=== PATIENT | male | born 1950 | race Caucasian/White ===

== ENCOUNTER 2018-08-24 02:07 | Outpatient (CLI) | payer MEDICARE, SELFPAY ==
[2018-08-24 07:52] LABS: Abs Immature Grans 0.01 k/cumm (0.0-0.09); Absolute Basophil Count 0.01 k/cumm (0.0-0.2); Absolute Eosinophil Count 0.13 k/cumm (0.0-0.7); Absolute Lymphocyte Count 1.84 k/cumm (1.2-3.4); Absolute Monocyte Count 0.37 k/cumm (0.11-0.7); Absolute Neutrophil Count 2.92 k/cumm (1.2-6.7); Basophils % 0.2; Eosinophils % 2.5; HCT 47.1 % (40.0-50.0); HGB 15.8 g/dL (13.5-17.5); Immature Grans % 0.2; Lymphocytes % 34.8; Mean Corp. HGB Concentration 33.5 g/dL (32.0-36.0); Mean Corpuscular Hemoglobin 31.9 pg (27.0-33.0); Mean Platelet Volume 10.9 fL (8.0-11.0); Neutrophils % 55.3; Platelet Count 157 x1000/uL (130-400); RBC 4.96 m/cumm (4.50-6.00); RBC Distribution Width 13.4 % (11.8-14.1); White Blood Cell Count 5.28 k/cumm (4.4-10.8)
[2018-08-24 10:09] LABS: ALT 22 U/L (12-78); AST 23 U/L (15-37); Albumin 3.9 g/dL (3.4-5.0); Alkaline Phosphatase 66 U/L (46-116); Anion Gap 7.2 mmol/L (3-11); BUN 13 mg/dL (7-18); Bilirubin, Total 1.8 mg/dL (0.2-1.0); CO2 30.8 mmol/L (21.0-32.0); CREATININE 1.05 mg/dL (0.70-1.30); Calcium 8.9 mg/dL (8.5-10.1); Chloride 102 mmol/L (98-107); Glucose 87 mg/dL (70-100); Potassium 4.2 mmol/L (3.5-5.1); Sodium 140 mmol/L (136-145); TSH 3.45 uIU/mL (0.358-3.74); Total Protein 7.1 g/dL (6.4-8.2)
== END 2018-08-24 02:27 ==
PROVIDERS: PCP Family Medicine; Visit Provider Family Medicine
DX: R53.83 Other fatigue (principal); R10.32 Left lower quadrant pain
CPT/HCPCS: 36415; 80053; 84443; 85025

== ENCOUNTER 2018-09-02 01:12 | Outpatient (CLI) | payer MEDICARE, SELFPAY ==
[2018-09-02] MEDS: Omnipaque 350 MG/ML 50 ML BTL PO (09:04)
--- NOTE | 2018-09-02 10:52 | DI.CT_ITS ---
SYMPTOM/DIAGNOSIS: LLQ PAIN, LT FLANK PAIN ABDOMEN AND PELVIC CT: CT scan of the abdomen and pelvis was performed with oral contrast only. The patient refused the intravenous contrast. Comparison ultrasound is 05/06/12. Mild scarring or atelectasis is seen in the lung bases. Lack of IV contrast does limit evaluation of the abdominal organs. The unenhanced liver is unremarkable. The gallbladder is negative. No biliary ductal dilatation is seen. The unenhanced pancreas, spleen and adrenal glands are unremarkable. The kidneys show no evidence of nephrolithiasis or hydronephrosis. There is a 1.5 cm., round, hypodense cortical lesion at the superior aspect of the left kidney. This may represent a cyst. Sonographic evaluation may be considered. The urinary bladder is intact. The prostate gland appears enlarged. The abdominal aorta is of normal caliber. There is mild atherosclerosis present. No aneurysmal dilatation is seen. No significant abdominal or pelvic adenopathy, ascites or pneumoperitoneum is present. There is a moderate amount of stool seen throughout the colon. No evidence of bowel obstruction or inflammation. No findings to suggest an acute appendicitis are present. There are degenerative changes seen in the spine. IMPRESSION: 1. No evidence of an acute abdomen. 2. Enlarged prostate gland. 3. 1.5 cm., round, hypodense lesion in the superior aspect of the left kidney. The finding may represent a cyst. Sonographic correlation is recommended.
== END 2018-09-02 01:32 ==
PROVIDERS: PCP Family Medicine; Visit Provider Family Medicine
DX: R10.32 Left lower quadrant pain (principal); N40.0 Benign prostatic hyperplasia without lower urinary tract symptoms; N28.9 Disorder of kidney and ureter, unspecified
CPT/HCPCS: 36415; 74176; 82565; 84443; Q9967

== ENCOUNTER 2020-10-10 18:32 | Outpatient (REF) | payer MEDICARE, SELFPAY ==
[2020-10-14 17:07] LABS: COVID-19 RT-PCR Result NEGATIVE (Negative)
== END 2020-10-10 18:52 ==
LOC: NCHCN 18:32
PROVIDERS: PCP Family Medicine; Visit Provider Nurse Practitioner Family
DX: Z11.59 Encounter for screening for other viral diseases (principal)
CPT/HCPCS: U0003

== ENCOUNTER 2022-02-20 10:11 | Outpatient (CLI) | payer MEDICARE, SELFPAY ==
--- NOTE | 2022-02-20 10:00 | RT.EKG_ITS ---
APPROVED REPORT Exam: Resting ECG Reason for Exam: bradycardia Patient Location: O HR:47 bpm ECG Measurements Heart Rate 47 AXIS MS 167 P 91 QRSd 106 QRS 3 QT 461 T 30 QTc 408 Conclusion Sinus bradycardia...rate< 60 Otherwise normal
== END 2022-02-20 10:12 | disposition home or self-care (01) ==
LOC: DI.CM 10:12
PROVIDERS: PCP Family Medicine; Visit Provider Family Medicine
DX: R00.1 Bradycardia, unspecified (principal)
CPT/HCPCS: 93010

== ENCOUNTER 2022-03-19 03:13 | Outpatient (CLI) | payer MEDICARE, SELFPAY ==
[2022-03-19 13:51] LABS: ALT 25 U/L (16-63); AST 24 U/L (15-37); Albumin 4.1 g/dL (3.4-5.0); Alkaline Phosphatase 71 U/L (46-116); Anion Gap 7.5 mmol/L (3-11); BUN 16 mg/dL (7-18); Bilirubin, Total 1.9 mg/dL (0.2-1.0); CO2 30.5 mmol/L (21.0-32.0); CREATININE 1.1 mg/dL (0.70-1.30); Calcium 9.1 mg/dL (8.5-10.1); Calculated LDL 114 mg/dL (<100); Chloride 104 mmol/L (98-107); Cholesterol 193 mg/dL (<200); Glucose 76 mg/dL (74-106); HDL Cholesterol 63 mg/dL (40-60); Potassium 4.2 mmol/L (3.5-5.1); Sodium 142 mmol/L (136-145); Total Protein 7.1 g/dL (6.4-8.2); Triglyceride 81 mg/dL (<150)
[2022-03-19 23:02] LABS: PSA, Screening 1.6 ng/mL (<=6.5)
[2022-03-20 09:42] LABS: Hepatitis C Ab w Rflx HCV PCR Negative (Negative)
== END 2022-03-19 03:14 | disposition home or self-care (01) ==
LOC: LBO 03:13
PROVIDERS: PCP Family Medicine; Visit Provider Family Medicine
DX: E78.79 Other disorders of bile acid and cholesterol metabolism (principal); Z11.59 Encounter for screening for other viral diseases; I47.1 Supraventricular tachycardia; N40.0 Benign prostatic hyperplasia without lower urinary tract symptoms; Z12.5 Encounter for screening for malignant neoplasm of prostate; K59.04 Chronic idiopathic constipation
CPT/HCPCS: 36415; 80053; 80061; 84153; 86803

== ENCOUNTER 2022-10-15 11:00 | Outpatient (RCR) | payer MEDICARE, SELFPAY ==
--- NOTE | 2022-10-15 11:00 | HOLTER_ITS ---
APPROVED REPORT Conclusion This is a 24-hour Holter monitor ordered for shortness of breath Predominant rhythm was sinus with an average heart rate of 62. Minimum was 48, maximum when in sinus was 132 Ventricular ectopic beats were seen, comprising approximately 3% of total There were frequent atrial premature beats, comprising 13% of total. There were several self-limited episodes of atrial fibrillation, generally lasting less than a few minutes. These did not appear to be symptomatic. Rate when in atrial fibrillation was 1 30-1 50. There was no high-grade AV block, no pauses greater than 3 seconds As noted, there were no apparent patient symptoms
== END 2022-10-24 23:59 | disposition home or self-care (01) ==
LOC: CARDOPNVT 11:00
PROVIDERS: PCP Family Medicine; Visit Provider Emergency Medicine
DX: R06.02 Shortness of breath (principal); I49.1 Atrial premature depolarization; I49.9 Cardiac arrhythmia, unspecified
CPT/HCPCS: 93227; 93225; 93226

== ENCOUNTER → 2022-10-15 13:09 | Outpatient (CLI) | payer MEDICARE, SELFPAY ==
--- NOTE | 2022-10-15 10:55 | DI.RAD_ITS ---
Exam(s) XR CHEST 2V PA LATERAL EXAM: XR CHEST 2V PA LATERAL CLINICAL HISTORY: SOB not active covid, R06.02 TECHNIQUE: 2D digital imaging was performed. COMPARISON: CR CHEST 2 VIEWS PA,LAT from 12/07/2008 FINDINGS: HEART: Normal size. Aorta: Not dilated. Mildly tortuous. PULMONARY VASCULATURE: Normal. LUNGS: Clear. PLEURAL SPACE: No pleural effusion or pneumothorax. BONE:Unremarkable for age. IMPRESSION: No acute abnormality. DATA REPOSITORY: RADIATION DOSE DELIVERED:
== END ==
PROVIDERS: PCP Family Medicine; Visit Provider Emergency Medicine
DX: R06.02 Shortness of breath (principal)
CPT/HCPCS: 71046; 93225

== ENCOUNTER 2022-11-19 02:34 | Outpatient (CLI) | payer MEDICARE, SELFPAY ==
[2022-11-19 11:13] LABS: Abs Immature Grans 0.01 10^3/uL (0.0-0.06); Absolute Basophil Count 0.03 10^3/uL (0.0-0.2); Absolute Eosinophil Count 0.07 10^3/uL (0.0-0.7); Absolute Lymphocyte Count 1.76 10^3/uL (1.2-3.4); Absolute Monocyte Count 0.47 10^3/uL (0.1-0.8); Absolute Neutrophil Count 5.04 10^3/uL (1.2-6.7); Basophils % 0.4; Eosinophils % 0.9; HCT 45.7 % (40.0-50.0); HGB 15.5 g/dL (13.5-17.5); Immature Grans % 0.1; Lymphocytes % 23.8; MCH 32.5 pg (27.0-33.0); MCHC 33.9 % (32.0-36.0); MCV 96 fL (80-95); MPV 11.5 fL (8.0-11.0); Monocytes % 6.4; Neutrophils % 68.4; Platelet Count 159 10^3/uL (130-400); RBC 4.77 10^6/uL (4.36-5.78); RDW-SD 46.4 fL; WBC 7.38 10^3/uL (4.4-10.8)
[2022-11-19 11:33] LABS: ALT 21 U/L (16-63); AST 29 U/L (15-37); Albumin 4.1 g/dL (3.4-5.0); Alkaline Phosphatase 68 U/L (46-116); Anion Gap 6.7 mmol/L (3-11); BUN 22 mg/dL (7-18); Bilirubin, Total 1.9 mg/dL (0.2-1.0); CO2 30.3 mmol/L (21.0-32.0); CREATININE 1.2 mg/dL (0.70-1.30); Calcium 9.5 mg/dL (8.5-10.1); Chloride 105 mmol/L (98-107); Estimated GFR 63.46 (mL/min/1.73m2); Glucose 78 mg/dL (74-106); Sodium 142 mmol/L (136-145); TSH (W/Ref FT4) 2.25 uIU/mL (0.36-3.74); Total Protein 7.5 g/dL (6.4-8.2)
== END 2022-11-19 02:35 | disposition home or self-care (01) ==
LOC: LBO 02:34
PROVIDERS: PCP Family Medicine; Visit Provider Family Medicine
DX: E03.9 Hypothyroidism, unspecified (principal); I48.0 Paroxysmal atrial fibrillation; R06.02 Shortness of breath; R53.83 Other fatigue
CPT/HCPCS: 36415; 80053; 84443; 85025

== ENCOUNTER 2023-10-08 01:12 | Outpatient (CLI) | payer MEDICARE, SELFPAY ==
[2023-10-10 23:03] LABS: Anaplasma phagocytophilum Negative (Negative); B. miyamotoi PCR Negative (Negative); Babesia divergens/MO-1 Negative (Negative); Babesia duncani Negative (Negative); Babesia microti Negative (Negative); Ehrlichia chaffeensis Negative (Negative); Ehrlichia ewingii/canis Negative (Negative); Ehrlichia muris eauclairensis Negative (Negative)
[2023-10-11 11:43] LABS: Lyme Ab w Rflx to Lyme Confirm Negative (Negative)
== END 2023-10-08 01:13 | disposition home or self-care (01) ==
LOC: LOS 01:13
PROVIDERS: PCP Family Medicine; Visit Provider Family Medicine
DX: W57.XXXA Bitten or stung by nonvenomous insect and other nonvenomous arthropods, initial encounter (principal); S30.863A Insect bite (nonvenomous) of scrotum and testes, initial encounter; X58.XXXA Exposure to other specified factors, initial encounter
CPT/HCPCS: 36415; 87798; 86618

== ENCOUNTER 2023-10-15 03:12 | Outpatient (CLI) | payer MEDICARE, SELFPAY ==
[2023-10-15 08:15] LABS: Abs Immature Grans 0.01 10^3/uL (0.0-0.06); Absolute Basophil Count 0.02 10^3/uL (0.0-0.2); Absolute Eosinophil Count 0.12 10^3/uL (0.0-0.7); Absolute Lymphocyte Count 2.07 10^3/uL (1.2-3.4); Absolute Monocyte Count 0.38 10^3/uL (0.1-0.8); Absolute Neutrophil Count 2.25 10^3/uL (1.2-6.7); Basophils % 0.4; Eosinophils % 2.5; HGB 15.5 g/dL (13.5-17.5); Immature Grans % 0.2; Lymphocytes % 42.7; MCH 31.8 pg (27.0-33.0); MCHC 33.7 % (32.0-36.0); MCV 94 fL (80-95); MPV 10.6 fL (8.0-11.0); Monocytes % 7.8; Neutrophils % 46.4; Platelet Count 159 10^3/uL (130-400); RBC 4.88 10^6/uL (4.36-5.78); RDW 12.8 % (11.8-14.1); RDW-SD 44.7 fL; WBC 4.85 10^3/uL (4.4-10.8)
[2023-10-15 08:23] LABS: ALT 29 U/L (16-63); AST 29 U/L (15-37); Albumin 3.7 g/dL (3.4-5.0); Alkaline Phosphatase 62 U/L (46-116); Anion Gap 6.8 mmol/L (3-11); BUN 19 mg/dL (7-18); Bilirubin, Total 1.6 mg/dL (0.2-1.0); CO2 27.2 mmol/L (21.0-32.0); CREATININE 1.1 mg/dL (0.70-1.30); Calcium 9.1 mg/dL (8.5-10.1); Chloride 104 mmol/L (98-107); Estimated GFR 70.01 (mL/min/1.73m2); Glucose 82 mg/dL (74-106); Potassium 3.8 mmol/L (3.5-5.1); Sodium 138 mmol/L (136-145); Total Protein 7.4 g/dL (6.4-8.2)
[2023-10-15 15:51] LABS: Lab Add On Test DONE
[2023-10-15 16:00] LABS: ESR 6 mm/hr (0-20)
[2023-10-15 16:36] LABS: Vitamin B12 504 pg/mL (193-986)
[2023-10-15 16:54] LABS: C-Reactive Protein 0.12 mg/dL (0.0-0.3)
== END 2023-10-15 03:13 | disposition home or self-care (01) ==
LOC: LBO 03:14
PROVIDERS: PCP Family Medicine; Visit Provider Family Medicine
DX: R50.9 Fever, unspecified (principal); Z00.00 Encounter for general adult medical examination without abnormal findings; K59.04 Chronic idiopathic constipation; M76.01 Gluteal tendinitis, right hip; M76.02 Gluteal tendinitis, left hip
CPT/HCPCS: 36415; 80053; 85652; 87040; 82607; 85025; 86140

== ENCOUNTER → 2023-11-12 00:43 | Outpatient (CLI) | payer MEDICARE, SELFPAY ==
--- NOTE | 2023-11-12 06:45 | DI.US_ITS ---
Exam(s) US RENAL EXAM: US RENAL CLINICAL HISTORY: F/U LT renal cyst 2018,N28.1 TECHNIQUE: Ultrasound of both kidneys performed using standard protocol. COMPARISON: US ABDOMEN RENAL from 05/06/2012 FINDINGS: RIGHT KIDNEY: Measures 9.7 cm in length. No cysts evident. Normal cortical thickness and corticomedullary different iation .No solid masses No intrarenal calculi nor hydronephrosis. LEFT KIDNEY: Measures 10.4 cm in length. There is a benign 2 cm cyst in the superior pole the left kidney again n oted, unchanged from 2018. Does not require further workup. Normal cortical thickness and corticome dullary differentiaion. No solids masses. No intrarenal calculi nor hydonephrosis. URINARY BLADDER: Prevoid volume is 274 cc Postvoid volume is 17 cc The urinary bladder wall appears uniformly thickened. No obvious discrete masses on these images. Both ureterovesical jets were identified Prostate: Prostate gland is moderately enlarged, measuring 5 x 4.5 x 5 cm. IMPRESSION: 1. No significant ultrasound findings in the kidneys. 2. Uniformly thickened urinary bladder wall. Moderately enlarged prostate gland DATA REPOSITORY:
== END ==
PROVIDERS: PCP Family Medicine; Visit Provider Family Medicine
DX: N28.1 Cyst of kidney, acquired (principal)
CPT/HCPCS: 76770

== ENCOUNTER → 2023-12-06 15:23 | Outpatient (CLI) | payer MEDICARE, SELFPAY ==
--- NOTE | 2023-12-06 10:24 | DI.RAD_ITS ---
Exam(s) XR HIP RT COMPLETE AP PELVIS EXAM: XR HIP RT COMPLETE AP PELVIS CLINICAL HISTORY: right hip pain, fall on ice. M25.551 PAIN RT HIP [id number] FALL. TECHNIQUE: 2D digital imaging was performed of the right hip. Three images were obtained. AP pelvis and lateral right hip views were obtained. COMPARISON: No exams were available for comparison FINDINGS: BONES: No acute fracture is present. No bony destructive lesion is seen. JOINTS: No dislocation present. Mild degenerative changes are seen in the hips. SOFT TISSUE: Normal. IMPRESSION: No acute or healing fracture or dislocation. DATA REPOSITORY: RADIATION DOSE DELIVERED:
== END ==
PROVIDERS: PCP Family Medicine; Visit Provider Family Medicine
DX: M25.551 Pain in right hip (principal); W00.9XXA Unspecified fall due to ice and snow, initial encounter
CPT/HCPCS: 73502

== ENCOUNTER 2024-09-14 03:09 | Outpatient (CLI) | payer MEDICARE, SELFPAY ==
[2024-09-14 11:55] LABS: Abs Immature Grans 0.01 10^3/uL (0.0-0.06); Absolute Basophil Count 0.02 10^3/uL (0.0-0.2); Absolute Eosinophil Count 0.17 10^3/uL (0.0-0.7); Absolute Lymphocyte Count 1.96 10^3/uL (1.2-3.4); Absolute Monocyte Count 0.44 10^3/uL (0.1-0.8); Basophils % 0.3 %; Eosinophils % 2.5 %; HCT 47.2 % (40.0-50.0); HGB 15.8 g/dL (13.5-17.5); Immature Grans % 0.1 %; Lymphocytes % 28.4 %; MCHC 33.5 % (32.0-36.0); MCV 96 fL (80-95); MPV 11.1 fL (8.0-11.0); Monocytes % 6.4 %; Neutrophils % 62.3 %; Platelet Count 157 10^3/uL (130-400); RBC 4.94 10^6/uL (4.36-5.78); RDW 13.2 % (11.8-14.1); RDW-SD 46.2 fL
[2024-09-14 12:37] LABS: ALT 26 U/L (16-63); AST 31 U/L (15-37); Albumin 3.9 g/dL (3.4-5.0); Alkaline Phosphatase 90 U/L (46-116); BUN 18 mg/dL (7-18); Bilirubin, Total 1.83 mg/dL (0.2-1.0); CREATININE 1.2 mg/dL (0.70-1.30); Calcium 9.2 mg/dL (8.5-10.1); Chloride 106 mmol/L (98-107); Estimated GFR 62.67 (mL/min/1.73m2); Glucose 81 mg/dL (74-106); Potassium 4.4 mmol/L (3.5-5.1); Sodium 143 mmol/L (136-145); TSH (W/Ref FT4) 2.06 uIU/mL (0.36-3.74); Total Protein 7.8 g/dL (6.4-8.2)
[2024-09-14 17:48] LABS: PSA, Diagnostic 2.2 ng/mL (<=6.5)
== END 2024-09-14 03:10 | disposition home or self-care (01) ==
PROVIDERS: PCP Family Medicine; Visit Provider Family Medicine
DX: N40.1 Benign prostatic hyperplasia with lower urinary tract symptoms (principal); N13.8 Other obstructive and reflux uropathy; Z00.00 Encounter for general adult medical examination without abnormal findings; E03.9 Hypothyroidism, unspecified; R53.83 Other fatigue
CPT/HCPCS: 36415; 80053; 84153; 84443; 85025

== ENCOUNTER 2024-09-29 00:23 | Outpatient (CLI) | payer MEDICARE, SELFPAY ==
--- NOTE | 2024-09-29 07:30 | DI.US_ITS ---
APPROVED REPORT EXAM: Comprehensive 2D, Doppler, and color-flow Echocardiogram Patient Location: Out-Patient Environmental Tech: Jasmyn Stallworth RDCS (AE) Indications: Fatigue, Paroxysmal atrial fibrillation Other Information Study Quality: Poor. Technically limited study due to body habitus, inability to position patient exa m done supine, very limited imaging windows. Conclusion Technically very limited study Grossly normal left ventricular chamber size wall thickness and systolic function Grossly normal right ventricular size and function Both atria appear within the range of normal in size Within the limits of the study no structural valvular disease is identified Mild to moderate mitral regurgitation Wall motion Left Ventricle Technically very limited parasternal long axis imaging. The overall left ventricular systolic functio n appears normal. Arrhythmia throughout exam, beat to beat variation Regional wall motion is not well visualized but grossly normal. There is no ventricular septal defect visualized. Right Ventricle Right ventricle is not well visualized. Right ventricular systolic function could not be assessed. Atria Left atrium is not well visualized. Right atrium is not well visualized. The interatrial septum is in tact with no evidence for an atrial septal defect. Aortic Valve The aortic valve is normal in structure. There is no aortic valvular stenosis. No aortic regurgitatio n is present. Mitral Valve The mitral valve is normal in structure. No evidence of mitral valve stenosis. Mild to moderate nancy l regurgitation. Tricuspid Valve The tricuspid valve is normal in structure. There is no tricuspid valve stenosis. Trace tricuspid reg urgitation. Unable to assess PA pressure. Pulmonic Valve Pulmonic valve is not well visualized. Great Vessels The aortic root is normal in size. Ascending aorta is not well visualized. IVC is normal in size and collapses >50% with inspiration. Pericardium There is no pericardial effusion. 2D Dimensions Ao Root d 3.53 cm M: 3.1 - 3.7 LV Diastology MV E Vmax 0.98 (0.4-1.3 m/s) Aortic Valve AoV Vmax 0.88 m/s LVOT Vmax 0.60 m/s AoV Peak Grad 3.1 mmHg LVOT Peak Grad 1.5 mmHg AoV Area (Vmax) 2.27 cm2 LVOT VTI 0.122 m AoV VTI 0.176 m LVOT Mean Grad 1.0 mmHg AoV Mean Ankur. 0.64 m/s LVOT SV 40.22 mL AoV Mean Grad 1.9 mmHg LVOT Diam s 2.05 cm AoV Area (VTI) 2.28 cm2 AV Regurg Peak Gr. 3.11 mmHg Velocity Ratio 0.68 Mitral Valve MV Vmax TIPS 0.96 m/s MV Mean Grad 1.3 (<2mmHg) MV Area PHT 3.49 cm2 MV VTI 0.167 m
== END 2024-09-29 00:43 ==
LOC: DI 00:23
PROVIDERS: PCP Family Medicine; Visit Provider Family Medicine
DX: I48.0 Paroxysmal atrial fibrillation (principal); I34.0 Nonrheumatic mitral (valve) insufficiency
CPT/HCPCS: 93306

== ENCOUNTER 2024-09-29 13:31 | Outpatient (RCR) | payer MEDICARE, SELFPAY | END 2024-10-24 23:59 | disposition home or self-care (01) | LOC: CARDOPNVT 13:31 | PROVIDERS: PCP Family Medicine; Visit Provider Family Medicine ==

== ENCOUNTER 2024-11-09 00:15 | Outpatient (CLI) | payer MEDICARE, SELFPAY ==
--- NOTE | 2024-11-09 07:13 | DI.RAD_ITS ---
Exam(s) XR SHOULDER LT COMPLETE 2+V EXAM: XR SHOULDER LT COMPLETE 2+V CLINICAL HISTORY: l shoulder pain,M25.512. TECHNIQUE: 2D digital imaging was performed. Three views. COMPARISON: No exams were available for comparison FINDINGS: BONES: No acute fracture is present. No bony destructive lesion is seen. JOINTS: No dislocation present. Mild spurring at AC joint. Glenohumeral joint space is maintained. SOFT TISSUE: Normal. IMPRESSION: Mild degenerative changes of the AC joint. DATA REPOSITORY: RADIATION DOSE DELIVERED:
--- NOTE | 2024-11-09 07:13 | DI.RAD_ITS ---
Exam(s) XR CERVICAL SPINE COMP 4-5V EXAM: XR CERVICAL SPINE COMP 4-5V CLINICAL HISTORY: Left shoulder pain,M25.512. TECHNIQUE: 2D digital imaging was performed. Five views were performed. COMPARISON: No exams were available for comparison FINDINGS: BONES: No fracture or destructive lesion. Vertebral bodies are unremarkable. Facet degenerative ramsey es are noted throughout. There is mild neural foraminal narrowing at C5-6 and C6-7. DISKS: Moderate narrowing of the C 2 3 disc space. Mild narrowing of the C3-4 disc space. Moderate narrowing of the C5-6 and C6-7 disc spaces. Endplate osteophytes are present at these levels. The C 4-5 disc space is maintained. ALIGNMENT: Cervical spinal alignment is within normal limits. The odontoid and atlantoaxial articulat ions are normal. SOFT TISSUE: Normal. The lung apices are clear. IMPRESSION: Multilevel degenerative changes. DATA REPOSITORY: RADIATION DOSE DELIVERED:
== END 2024-11-09 00:35 ==
LOC: DI 00:15
PROVIDERS: PCP Family Medicine; Visit Provider Family Medicine
DX: M19.012 Primary osteoarthritis, left shoulder (principal); M50.121 Cervical disc disorder at C4-C5 level with radiculopathy
CPT/HCPCS: 72050; 73030

== ENCOUNTER → 2024-11-28 08:52 | Outpatient (BNVA) | payer MEDICARE, SELFPAY | PROVIDERS: PCP Family Medicine; Referring Provider Family Medicine; Visit Provider Student in an Organized Health Care Education/Training Program | DX: M67.912 Unspecified disorder of synovium and tendon, left shoulder (principal); M19.012 Primary osteoarthritis, left shoulder; G89.29 Other chronic pain | CPT/HCPCS: 20610; 99203; J1010 ==

== ENCOUNTER 2024-12-19 07:32 | Outpatient (CLI) | payer MEDICARE, SELFPAY ==
[2024-12-19 07:44] VITALS: BP 133/101; PULSE 79; RESP 18; TEMP 36.5; O2SAT 99
--- NOTE | 2024-12-19 08:07 | PDOC.PAIN ---
Date of service: 12/19/24 Time of Service: 08:39 Pain Managment Procedure Note Procedure Note Procedure Note: Ultrasound guided Trigger Point Injection ? Location: LEFT TRAPEZIUS ? Pre-procedure Diagnosis:? M79.10- Myalgia, unspecified site ? Post-procedure Diagnosis:? The same as above ? Sedation: none? Estimated blood loss: zero ? Surgeon:? Jose Manuel Michael MD ? Procedure Detail:?? The procedure and potential risks were explained to the patient and informed written consent was obtained. Time out was performed in procedure room with nursing staff confirming the patient's identity, procedure to be performed, allergies, and any blood thinning or anti-platelet medications. Sterile gloves were used, a face mask was worn, and new single dose vials of all medications were used with the top being swabbed with alcohol and given time to dry prior to withdrawal of medication.? Trigger points were palpated and confirmed to reproduce the patient?s pain symptoms.? Pre-injection ultrasound scanning of the area of interest was performed using Linear transducer, identifying relevant anatomy, landmarks, and neurovascular structures allowing for optimal needle path. The site was then prepared in the usual sterile fashion, using thorough Chlorhexadine preparation of the skin and sterile draping. The same ultrasound transducer was then passed into the sterile field using sterile probe cover and sterile ultrasound gel. Using high-frequency ultrasound probe with sterile cover target was identified.? ? A 25-gauge 1.5 inch needle was advanced to the target.? following negative aspiration a total of 8 cc from a mixture of 2% lidocaine and 30 mg Depo-Medrol was injected.? Left at the trapezius muscle - total of 6 sites? The patient tolerated the procedure well. Patient discharged home in stable condition. PAIN: PRE-PROCEDURE 9/10 POST-PROCEDURE 3/10. Though shoulder pain still 9/10. COMMENT: However, some what less pain in the trapezius muscle. It does appear to be a shoulder joint or rotator cuff muscles. MRI shoulder pending. Patient would like referral to [facility] so we will refer him to Dr. Radha Costello after his imaging otherwise will get imaging of his cervical spine if does not appear to be related to his shoulder. Could consider intra-articular shoulder or bursa injection with image guidance as well. Plan:? Follow up prn.
[2024-12-19 08:16] VITALS: PULSE 110; O2SAT 98
[2024-12-19 08:20] VITALS: PULSE 87; O2SAT 100
[2024-12-19] MEDS: Lidocaine 2% Pres-Free 5 ML VIAL IJ (08:35)
[2024-12-19] MEDS: Nerve Block Tray 1 EACH MC (08:35)
[2024-12-19] MEDS: methylPREDNISolone ACETATE 40 MG/ML VIAL IJ (08:36)
== END 2024-12-19 07:33 | disposition home or self-care (01) ==
LOC: PC 07:32
PROVIDERS: PCP Family Medicine; Visit Provider Anesthesiology Pain Medicine
DX: M79.18 Myalgia, other site (principal); M54.9 Dorsalgia, unspecified
CPT/HCPCS: 00123; 20552; J1010

== ENCOUNTER 2025-01-24 00:57 | Outpatient (CLI) | payer MEDICARE, SELFPAY ==
--- NOTE | 2025-01-24 07:15 | DI.MRI_ITS ---
Exam(s) MR UPPER JOINT LT WO EXAM: MR UPPER JOINT LT WO CLINICAL HISTORY: lt shoulder pain,arthritis lt glenohumeral joint,tendinopathy lt rotator. TECHNIQUE: Multiplanar multisequence MRI was performed. COMPARISON: CR XR SHOULDER LT COMPLETE 2+V from 11/09/2024 FINDINGS: BONES: There is no fracture or contusion pattern. JOINTS: There are mild degenerative changes seen at the acromioclavicular joint. Small cystic change s are seen in the greater tuberosity. There is thinning of the articular cartilage in the glenohumer al joint. No significant joint effusion is seen. TENDONS: Supraspinatus: There is mild tendinosis of the supraspinatus but no evidence of a tear seen. Infraspinatus: Unremarkable. Subscapularis: Unremarkable. Teres Minor: Unremarkable. Biceps and [place]: Unremarkable. MUSCLES: Unremarkable. GLENOID LABRUM: No evidence of a labral tear is seen on this noncontrast examination. SOFT TISSUES: Unremarkable. LIGAMENTS: Unremarkable. OTHER: Subacromial and subdeltoid bursae are unremarkable. There is a small amount of fluid in the oconnor bcoracoid bursa. IMPRESSION: 1. Mild supraspinatus tendinosis. No evidence of a rotator cuff tear. 2. Degenerative changes seen at the acromioclavicular and glenohumeral joints. DATA REPOSITORY:
== END 2025-01-24 01:17 ==
LOC: DI 00:57
PROVIDERS: PCP Family Medicine; Visit Provider Anesthesiology Pain Medicine
DX: M19.012 Primary osteoarthritis, left shoulder
CPT/HCPCS: 73221

== ENCOUNTER 2025-03-23 00:51 | Outpatient (CLI) | payer MEDICARE, SELFPAY ==
[2025-03-23 13:26] LABS: Abs Immature Grans 0.02 10^3/uL (0.0-0.06); Absolute Basophil Count 0.03 10^3/uL (0.0-0.2); Absolute Eosinophil Count 0.19 10^3/uL (0.0-0.7); Absolute Lymphocyte Count 2.24 10^3/uL (1.2-3.4); Absolute Neutrophil Count 4.26 10^3/uL (1.2-6.7); Basophils % 0.4 %; Eosinophils % 2.6 %; HGB 15.4 g/dL (13.5-17.5); Immature Grans % 0.3 %; Lymphocytes % 30.9 %; MCH 32.8 pg (27.0-33.0); MCHC 34.2 % (32.0-36.0); MCV 96 fL (80-95); Monocytes % 6.9 %; Neutrophils % 58.9 %; Platelet Count 152 10^3/uL (130-400); RBC 4.69 10^6/uL (4.36-5.78); RDW 12.8 % (11.8-14.1); RDW-SD 45.4 fL; WBC 7.24 10^3/uL (4.4-10.8)
[2025-03-23 14:14] LABS: ALT 32 U/L (16-63); AST 37 U/L (15-37); Albumin 3.8 g/dL (3.4-5.0); Alkaline Phosphatase 81 U/L (46-116); Anion Gap 7.3 mmol/L (3-11); BUN 19 mg/dL (7-18); Bilirubin, Total 1.5 mg/dL (0.2-1.0); CO2 30.7 mmol/L (21.0-32.0); CREATININE 1.1 mg/dL (0.70-1.30); Calcium 9.2 mg/dL (8.5-10.1); Chloride 102 mmol/L (98-107); Estimated GFR 69.14 (mL/min/1.73m2); Glucose 78 mg/dL (74-106); Sodium 140 mmol/L (136-145); Total Protein 7.4 g/dL (6.4-8.2); Vitamin B12 534 pg/mL (193-986)
== END 2025-03-23 00:52 | disposition home or self-care (01) ==
LOC: LBO 00:51
PROVIDERS: PCP Family Medicine; Visit Provider Family Medicine
DX: R53.83 Other fatigue (principal); G47.9 Sleep disorder, unspecified
CPT/HCPCS: 36415; 80053; 82607; 84443; 85025

== ENCOUNTER 2025-04-16 10:58 | Outpatient (CLI) | payer MEDICARE, SELFPAY ==
[2025-04-16 11:20] LABS: ALT 35 U/L (16-63); AST 33 U/L (15-37); Alkaline Phosphatase 90 U/L (46-116); Anion Gap 3.3 mmol/L (3-11); BUN 16 mg/dL (7-18); Bilirubin, Total 1.4 mg/dL (0.2-1.0); CO2 32.7 mmol/L (21.0-32.0); CREATININE 1.1 mg/dL (0.70-1.30); Calcium 9.2 mg/dL (8.5-10.1); Chloride 103 mmol/L (98-107); Estimated GFR 69.14 (mL/min/1.73m2); Glucose 91 mg/dL (74-106); Potassium 4.1 mmol/L (3.5-5.1); Sodium 139 mmol/L (136-145); Total Protein 7.8 g/dL (6.4-8.2)
[2025-04-18 10:20] LABS: Lyme Ab w Rflx to Lyme Confirm Negative (Negative)
[2025-04-18 23:31] LABS: Anaplasma phagocytophilum Negative (Negative); B. miyamotoi PCR Negative (Negative); Babesia divergens/MO-1 Negative (Negative); Babesia duncani Negative (Negative); Babesia microti Negative (Negative); Ehrlichia chaffeensis Negative (Negative); Ehrlichia ewingii/canis Negative (Negative); Ehrlichia muris eauclairensis Negative (Negative)
== END 2025-04-16 10:59 | disposition home or self-care (01) ==
LOC: LBO 10:58
PROVIDERS: PCP Family Medicine; Visit Provider Nurse Practitioner Family
DX: T14.90XA Injury, unspecified, initial encounter (principal); W57.XXXA Bitten or stung by nonvenomous insect and other nonvenomous arthropods, initial encounter
CPT/HCPCS: 36415; 80053; 87798; 85025; 86618

== ENCOUNTER 2025-05-24 02:47 | Outpatient (CLI) | payer MEDICARE, SELFPAY ==
[2025-05-25 10:57] LABS: Lyme Ab w Rflx to Lyme Confirm Negative (Negative)
== END 2025-05-24 02:48 | disposition home or self-care (01) ==
LOC: LBO 02:47
PROVIDERS: PCP Family Medicine; Visit Provider Family Medicine
DX: S30.861A Insect bite (nonvenomous) of abdominal wall, initial encounter (principal); W57.XXXA Bitten or stung by nonvenomous insect and other nonvenomous arthropods, initial encounter; A69.20 Lyme disease, unspecified
CPT/HCPCS: 36415; 86618

== ENCOUNTER 2025-10-10 16:27 | Outpatient (CLI) | payer MEDICARE, SELFPAY ==
--- NOTE | 2025-10-10 16:15 | RT.EKG_ITS ---
APPROVED REPORT Exam: Resting ECG Reason for Exam: afib Patient Location: O HR:80 bpm ECG Measurements Heart Rate 80 AXIS HI 157 P 86 QRSd 108 QRS -3 QT 460 T 44 QTc 531 Conclusion Sinus rhythm...normal P axis, V-rate 50- 99 Ventricular bigeminy...bigeminy string>4 w/ V complexes
== END 2025-10-10 16:28 | disposition home or self-care (01) ==
LOC: DI.CM 16:28
PROVIDERS: PCP Family Medicine; Visit Provider Family Medicine
DX: I48.0 Paroxysmal atrial fibrillation (principal); I49.8 Other specified cardiac arrhythmias
CPT/HCPCS: 93010